=== PATIENT | male | born 1990 | race Two or more races ===

== ENCOUNTER 2020-02-18 06:08 | Emergency (ER) | payer OTHER ==
[~2020-02-18] VITALS: Ht 175.3 cm; Wt 90.7 kg
[2020-02-18 06:15] VITALS: BP 132/72
[2020-02-18 06:25] VITALS: BP 132/72
[2020-02-18] MEDS ORDERED: IBUPROFEN600 MG ORAL (06:27)
[2020-02-18] MEDS ORDERED: TYLENOL325 MG ORAL (06:27)
--- NOTE | 2020-02-18 06:27 | Emergency Room Report ---
History of Present Illness General Chief Complaint: Sore Throat Source: Patient Present Illness HPI 29-year-old male presents with sore throat x1 day achy in nature aggravated with drinking, alleviated by not eating severity is mild, intermittent patient versus some chills/fever no chest pain or shortness of breath patient presents for evaluation Allergies: Coded Allergies: No Known Allergies (Unverified , 02/18/20) COVID-19 Screening Contact w/high risk pt: No Recent Travel to affected area: No Experienced COVID-19 symptoms?: No Patient History Past Medical History: see triage record Reviewed Nursing Documentation: PMH: Agreed; PSxH: Agreed Nursing Documentation-PMH Past Medical History: No Stated History Review of Systems All Other Systems: negative except mentioned in HPI Physical Exam Vital Signs Date Time Temp Pulse Resp B/P (MAP) Pulse Ox O2 Delivery O2 Flow Rate FiO2 02/18/20 06:10 99.9 104 19 132/72 (92) 95 General Appearance: well appearing, no apparent distress Head: normocephalic, atraumatic Eyes: bilateral eye PERRL, bilateral eye EOMI ENT: hearing grossly normal, normal voice, moist mucus membranes, pharyngeal erythema Neck: full range of motion, supple Respiratory: no respiratory distress, speaking full sentences Neurologic: alert, normal gait Psychiatric: mood/affect normal Skin: no rash Medical Decision Making Diagnostic Impression: Primary Impression: Acute pharyngitis Qualified Codes: J02.9 - Acute pharyngitis, unspecified ER Course 29-year-old male presents with acute pharyngitis, will provide a Decadron, Toradol patient counseled with strict return precautions, social isolation disposition home with return precautions follow-up with PCP Last Vital Signs Date Time Temp Pulse Resp B/P (MAP) Pulse Ox O2 Delivery O2 Flow Rate FiO2 02/18/20 06:10 99.9 104 19 132/72 (92) 95 Disposition: HOME, SELF-CARE Scripts Ibuprofen* (MOTRIN*) 600 Mg Tablet 600 MG ORAL Q8H PRN for For Pain, #30 TAB 0 Refills Prov: Buzz Lopez MD 02/18/20 Acetaminophen (Tylenol) 325 Mg Tablet 650 MG ORAL Q6H PRN for Prn Pain/Headache/Temp > 101, #30 TAB 0 Refills Prov: Buzz Lopez MD 02/18/20 Referrals: [facility] Gema Sauceda. [facility] Patient Instructions: Pharyngitis, [id number] Additional Instructions: The patient was provided with discharge instructions, notified to follow-up with a primary care doctor and or specialist in the next 24-48 hours, and to return to the ED if they have worsening of their symptoms. Please note that this report is being documented using DRAGON technology. This can lead to erroneous entry secondary to incorrect interpretation by the dictating instrument. Please self isolate for 14 days until symptoms resolve. Please practice social isolation. Strongly recommend proper hand hygiene. Buzz Lopez MD Feb 18, 2020 06:27
[2020-02-18] MEDS ORDERED: Ketorolac 30mg Inj IM ONE (06:30)
--- NOTE | 2020-02-18 06:30 | NUR ---
ER DISCHARGE NOTE: Patient is cleared to be discharged per ERMD, pt is aox4, on room air, with stable vital signs. pt was given dc and prescription instructions, pt was able to verbalize understanding, pt id band removed without complications. pt is able to ambulate with steady gait. pt took all belongings.
== END 2020-02-18 06:30 | disposition home or self-care (01) ==
LOC: EMR 06:25
DX: J02.9 Acute pharyngitis, unspecified (principal)
CPT/HCPCS: 96372; J1885; J8540; Z7502; 99283